=== PATIENT | female | born 1935 | race Caucasian/White ===

== ENCOUNTER 2017-09-23 05:23 | Emergency (ER) | payer OTHER, MEDICAID ==
[~2017-09-23] VITALS: Ht 162.6 cm; Wt 59.0 kg
[2017-09-23 05:24] VITALS: BP 142/85
== END 2017-09-23 07:01 | disposition home or self-care (01) ==
LOC: ER 05:23
DX: S00.93XA Contusion of unspecified part of head, initial encounter (principal); W01.0XXA Fall on same level from slipping, tripping and stumbling without subsequent striking against object, initial encounter; Y93.89 Activity, other specified; Y92.002 Bathroom of unspecified non-institutional (private) residence as the place of occurrence of the external cause; Y99.8 Other external cause status